=== PATIENT | male | born 1990 | race American Indian/Alaskan Native ===

== ENCOUNTER 2022-04-01 12:40 | Emergency (ER) | payer SELFPAY ==
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
--- NOTE | 2022-04-01 14:09 | XRay Report ---
LEFT FOOT 3 VIEW(S) INDICATION / CLINICAL INFORMATION: injury COMPARISON: None available. FINDINGS: BONES / JOINT(S): Acute fracture of the head of the second toe metatarsal. Additional questionable fr acture along the medial/distal aspect of the great toe proximal phalanx. Chronic appearing fracture o f the base of the great toe proximal phalanx.No significant arthritis. SOFT TISSUES: No significant abnormality. ADDITIONAL FINDINGS: None. IMPRESSION: 1. Acute fracture of the head of the second toe metatarsal. 2. Additional possible fracture of the great toe proximal phalanx. [facility] as indicated. Signer Name: Moshe Razo MD Signed: 04/01/2022 2:05 PM Workstation Name: [id number]
[2022-04-01 14:40] VITALS: BP 118/76
== END 2022-04-01 15:00 | disposition home or self-care (01) ==
LOC: ED 12:40
DX: S92.902A Unspecified fracture of left foot, initial encounter for closed fracture (principal); V29.9XXA Motorcycle rider (driver) (passenger) injured in unspecified traffic accident, initial encounter; Y93.89 Activity, other specified; Y92.488 Other paved roadways as the place of occurrence of the external cause; Y99.8 Other external cause status
CPT/HCPCS: 99283